=== PATIENT | male | born 1975 | race Caucasian/White ===

== ENCOUNTER → 2021-09-01 | Outpatient (CLI) | payer BC, SELFPAY ==
--- NOTE | 2021-09-01 08:10 | RAD_ITS ---
STUDY: X-RAY - ESOPHAGUS (BARIUM SWALLOW) WITH FLUOROSCOPY REASON FOR EXAM: Male, 45 years old. GERD TECHNIQUE: 13 view(s) of the esophagus were obtained following swallowing of barium. FLUOROSCOPY TIME (if supplied): (38 seconds) minutes/seconds COMPARISON: None. FINDINGS: There is no demonstrated esophageal foreign body. There is no demonstrated stricture or mucosal abnormality. Normal gastroesophageal junction, without a demonstrated hiatal hernia. The patient ingested a 12 mm tablet of barium without any difficulty. Normal visualized aortic arch and descending thoracic aorta. Normal visualized pulmonary parenchyma. Normal visualized osseous structures of the thorax. RAD/Esophagus Single Contrast IMPRESSION: Normal plain film x-ray examination (barium swallow) of the esophagus. Electronically Signed: Brian Garcia MD at 9:22 EDT ,
== END | disposition home or self-care (01) ==
LOC: RAD 08:08
PROVIDERS: PCP Family Medicine; Referring Provider Otolaryngology; Visit Provider Otolaryngology
DX: K21.9 Gastro-esophageal reflux disease without esophagitis (principal)
CPT/HCPCS: 74220

== ENCOUNTER 2022-05-29 07:02 | Day surgery (SDC) | payer BC, SELFPAY ==
[2022-05-29] VITALS (7 sets, daily range): BP systolic 101–130; BP diastolic 66–82; PULSE 56–81; RESP 18; TEMP 36.2–36.4; O2SAT 92–97; BMI 27.3
--- NOTE | 2022-05-29 | GASB_PTH ---
PATIENT: CHAR HATCH LOC: EN U#:[id number] AGE/SX: 46/M ROOM: RE05/29/[address]: Dr. Bridger Elliott MD : 1975 BED: DIS: 05/29/2022 SPEC #: [id number] RECD: 05/29/22 11:18 STATUS: CLIVE BARNETT #: [id number] CRISTIN: 05/29/22 00:[address]: Bridger Elliott DEPT: SURGICAL PATHOLOGY RECD BY: Marvin Bruner ENTERED: 05/29/22 11:18 SP TYPE: Gastric Bx OTHR DR: Dr. Bernardo Johns MD Tissues: A - Gastric mucous membrane B - Esophageal mucous membrane Procedures: Special Stain Group II Surgery Specimen Level IV Alcian Blue/PAS (control) HEADER OPERATION: Colonoscopy, EGD ([facility] [place]) with biopsy PRE-OP DIAGNOSIS: GERD, screening TISSUE SUBMITTED: A ? Antrum biopsy for H. pylori and path, B ? Distal esophagus biopsy MICROSCOPIC DIAGNOSIS A. Antrum, biopsy: Mild gastritis. See microscopic description and comment. B. Distal esophagus, biopsy: Fragments of gastroesophageal mucosa with chronic inflammation. Intestinal metaplasia (goblet cell metaplasia) not identified. See comment. SJ:rg 05/30/2022 COMMENT A. The results of immunohistochemistry for Helicobacter pylori will be reported separately ([id number]). B. Alcian blue/PAS stain with matched control is used in the evaluation of the specimen. MICROSCOPIC DESCRIPTION Slides are reviewed. A. The specimen shows fragments of gastric mucosa with chronic inflammatory cell infiltrates in the lamina propria consisting of lymphocytes and plasma cells, consistent with mild chronic gastritis. GROSS DESCRIPTION A - Received in fixative is one container labeled with the patient's name and designated antrum biopsy. The specimen consists of one irregular fragment of light guillen soft tissue that measures 0.3 x 0.3 x 0.1 cm. The specimen is totally submitted in one cassette. B - Received in fixative is one container labeled with the patient's name and designated distal esophagus. The specimen consists of multiple irregular fragments of light guillen soft tissue that in aggregate measure 1.5 x 0.4 x 0.1 cm. The specimen is totally submitted in one cassette. / TREMAYNE:annie 05/29/2022 TC:3 CPT: 23033 x2, 79680
--- NOTE | 2022-05-29 07:26 | PCM.HP.BLA ---
History and Physical Date of Admission: 05/29/22 Visit Reasons:?Gastroesophageal reflux disease (GERD) Chief Complaint: GERD [employer] Required: No Is patient in pain?: No Allergies No Known Allergies Allergy (Unverified 05/09/22 12:51) Medications fluticasone propionate 50 mcg/actuation nasal spray,suspension 1 spray intranasal 05/09/22 [History Confirmed 05/09/22] omeprazole 40 mg capsule,delayed release 40 mg PO .qod 05/09/22 [History Confirmed 05/09/22] sertraline 50 mg tablet 50 mg PO 05/09/22 [History Confirmed 05/09/22] PFSH Medical History?(Updated 05/09/22 @ 13:[address] Bridger Elliott MD) Anxiety Gastroesophageal reflux disease Snoring Surgical History?(Updated 05/09/22 @ 12:50 by Mariana Wilhelm) S/P rhinoplasty S/P wisdom tooth extraction Family History?(Updated 05/09/22 @ 12:50 by Mariana Wilhelm) Father CVA (cerebral vascular accident) CAD (coronary artery disease) Heart disease Hypertension Social History?(Updated 05/09/22 @ 12:50 by Mariana Wilhelm) Smoking Status:? Never smoker alcohol intake:? current alcohol intake frequency: a few times a week HPI HPI HPI: 46-year-old gentleman who is referred for surgical consultation regarding gastroesophageal reflux disease.? He is referred by Dr Bernardo Johns and a written copy of my surgical consult recommendations will return to him.? By report he has laryngeal regurgitation and currently is on Nexium every other day to help control his symptoms.? Otherwise he has epigastric and retrosternal burning.? He has some dysphagia to solids with food getting stuck in the epigastric area.? That is been going on for several years. He has never had an upper endoscopy or lower endoscopy.? There is no family history of colon cancer. 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 ROS General General: No weight change, appetite, fatigue, colon cancer, breast cancer or weakness HEENT HEENT: Yes difficulty swallowing; No eye injury, eye surgery, swollen glands or hoarseness Endo Endocrine: No thyroid disease, diabetes mellitus, thyroid cancer, Hair loss, heat intolerance or cold intolerance Skin Skin: No rash or changing moles Breast Breast: No left breast lump, right breast lump, nipple discharge, breast pain, abnormal mammogram, abnormal US or breast enlargement Musc Musculoskeletal: No back problems, arthritis, rheumatoid arthritis, gout or joint pain Cardio Cardiovascular: No murmur, pacemaker, heart disease, atrial fibrillation, high blood pressure, heart attack, heart stent, palpitations, shortness of breat with exertion or chest pain Psych Psychiatric: Yes anxiety; No depression or hearing voices Resp Respiratory: No shortness of breath, No sleep apnea, No cough, No COPD, No asthma, No emphysema and No wheezing Gastro Gastrointestinal: No abdominal pain, No nausea or vomiting, No diarrhea, No constipation, No blood in stool, Yes acid reflux, No hemorrhoids, No ulcers, No gallbladder problem and No black,tarry stools Richard Hematologic: No blood thinners, No blood disorders, No bleeding, No anemia and No blood clots Neuro Neurologic: No system reviewed and no additional complaints, except as documented, No as per HPI, No abnormal gait, No abnormal hearing, No abnormal movements, No abnormal speech, No behavioral changes, No burning sensations, No confusion, No convulsions, No disequilibrium, No dizziness, No localized weakness, No frequent falls, No headache(s), No lack of coordination, No loss of vision, No memory loss, No numbness, No other visual disturbances, No radicular pain, No restless legs, No sensory deficit, No syncope, No tingling, No tremor(s), No weakness and No other Exam Const General: cooperative, healthy appearing, comfortable and no acute distress [facility] Head: normal to inspection Eyes General: appearance normal, both eyes and all related structures Neck Neck: normal visual inspection Chest Chest palpation & inspection: normal inspection of the chest Resp Effort & Inspection: normal respiratory effort Auscultation: clear to auscultation bilaterally Cardio Rate: regular rate Rhythm: regular rhythm GI Palpation: soft and no hepatosplenomegaly Auscultation: normal bowel sounds Musc Cervical Spine: normal cervical lordosis Skin General: no rashes or lesions noted Neuro General: patient alert, patient awake and patient oriented x3 Extrem General: no calf tenderness Psych Appearance: grossly normal Assessment and Plan Assessment and Plan (1) Gastroesophageal reflux disease: ?Plan: 46-year-old gentleman with ongoing symptoms consistent with gastroesophageal reflux disease.? He is also had some esophageal dysphagia to foods.? He has not had an upper endoscopy.? I recommend to him a esophagogastroduodenoscopy with possible biopsy and potential dilatation if indicated.? I have described the technique, benefit, risk, alternatives.? He has had an opportunity to ask and have questions answered we will proceed as noted. Copy: Dr Bernardo Elliott M.D., F.A.C.S. (2) Screening for intestinal cancer: ?Status:?Acute ?Plan: It became apparent that the patient is age 46.? He denies any lower GI symptoms but he has not had a screening colonoscopy.? There is no family history of colon cancer.? I have offered to normal colonoscopy for screening purposes with possible biopsy or polypectomy as indicated.? He is aware of technique, benefit, risk, alternatives.? He will CONSIDER his options as to whether he would like to get that achieved at the same setting. Bridger Elliott M.D., F.A.C.S I have examined the patient and the H&P has been reviewed. There are no clinical changes since date of exam. Bridger Elliott M.D., F.A.C.S.
[2022-05-29] MEDS: Lactated Ringers 1,000 ML 15 ML IV (07:29)
--- NOTE | 2022-05-29 08:00 | IMM_PTH ---
PATIENT: CHAR HATCH LOC: EN U#:[id number] AGE/SX: 46/M ROOM: RE05/29/[address]: Dr. Bridger Elliott MD : 1975 BED: DIS: 05/29/2022 SPEC #: [id number] RECD: 05/29/22 14:40 STATUS: CLIVE RELyndsay #: [id number] CRISTIN: 05/29/22 08:[address]: Bridger Elliott DEPT: IMMUNOHISTOCHEMISTRY RECD BY: Tania Arreguin ENTERED: 05/29/22 14:40 SP TYPE: IMMUNO OTHR DR: Dr. Bernardo Johns MD Tissues: A - Stomach, NOS Procedures: H Pylori (initial) PHYSICIAN & INSTITUTION [place] [address] SPECIMEN INFORMATION: Tissue Source: A ? Antrum biopsy Clinical Info: GERD, screening Specimen Number: [id number] CPT code: 09545 METHODOLOGY: Deparaffinized sections of prefer/formalin-fixed tissue or PAP/DQ stained slides are incubated with monoclonal/polyclonal antibodies/oligonucleotide probes. Localization is made via biotin free immunoperoxidase method. Appropriate controls are performed and reacted as expected. Results on target cell population are indicated in the following table: RESULTS: ANTIBODY / CLONE RESULT Block A H Pylori (polyclonal) negative These tests were developed and their performance characteristics determined by [facility]. They may not have been cleared or approved by the U.S. Food and Drug Administration. The FDA has determined that such clearance or approval is not necessary. The above immunohistochemical/dualISH markers are ordered and reviewed by the Pathologist. INTERPRETATION: A. Antrum, biopsy: Negative for Helicobacter pylori organisms. SJ:annie 05/30/2022
--- NOTE | 2022-05-29 08:28 | OP.EGD_ITS ---
Patient Name: Lucas Schaeffer Procedure Date: 05/29/2022 7:58 AM Date of : 1975 Age: 46 Procedure: Upper GI endoscopy Indications: Suspected esophageal reflux Providers: Bridger Elliott MD Medicines: See the Anesthesia note for documentation of the administered medications Complications: No immediate complications. Procedure: Pre-Anesthesia Assessment: - Prior to the procedure, a History and Physical was performed, and patient medications and allergies were reviewed. The patient's tolerance of previous anesthesia was also reviewed. The risks and benefits of the procedure and the sedation options and risks were discussed with the patient. All questions were answered, and informed consent was obtained. Prior Anticoagulants: The patient has taken no previous anticoagulant or antiplatelet agents. ASA Grade Assessment: II - A patient with mild systemic disease. After reviewing the risks and benefits, the patient was deemed in satisfactory condition to undergo the procedure. After obtaining informed consent, the endoscope was passed under direct vision. Throughout the procedure, the patient's blood pressure, pulse, and oxygen saturations were monitored continuously. The Colonoscope was introduced through the mouth, and advanced to the second part of duodenum. The upper GI endoscopy was accomplished without difficulty. The patient tolerated the procedure well. Scope In: 8:03:09 AM Scope Out: 8:10:18 AM Total Procedure Duration Time 0 hours 7 minutes 9 seconds Findings: LA Grade A (one or more mucosal breaks less than 5 mm, not extending between tops of 2 mucosal folds) esophagitis with no bleeding was found 45 cm from the incisors. Biopsies were taken with a cold forceps for histology. A 1 cm hiatal hernia was present. The entire examined stomach was normal. Biopsies were taken with a cold forceps for histology. The examined duodenum was normal. Impression: - LA Grade A reflux esophagitis. Biopsied. - 1 cm hiatal hernia. - Normal stomach. Biopsied. - Normal examined duodenum. Recommendation: - Discharge patient to home. - Resume previous diet. - Continue present medications. - Telephone my office for pathology results in 1 week. Findings appear actually quite minimal and mild. We will await pathology. Procedure Code(s): --- Professional --- 73691, Esophagogastroduodenoscopy, flexible, transoral; with biopsy, single or multiple Diagnosis Code(s): --- Professional --- K21.0, Gastro-esophageal reflux disease with esophagitis K44.9, Diaphragmatic hernia without obstruction or gangrene CPT copyright 2017 [employer] [place] [employer]. All rights reserved. The codes documented in this report are preliminary and upon multiple spindle router operator review may be revised to meet current compliance requirements. Bridger Elliott MD 05/29/2022 8:28:20 AM This report has been signed electronically. Number of Addenda: 0 Note Initiated On: 05/29/2022 7:58 AM
--- NOTE | 2022-05-29 08:29 | OP.CCLET_ITS ---
05/29/2022 Bernardo Johns [address] [place] [address] Re : Upper GI endoscopy procedure for [facility] Dear Dr. Johns This procedure was performed on Sunday, May 29, 2022. My impressions and recommendations are as follows: Impressions : - LA Grade A reflux esophagitis. Biopsied. - 1 cm hiatal hernia. - Normal stomach. Biopsied. - Normal examined duodenum. Recommendations : - Discharge patient to home. - Resume previous diet. - Continue present medications. - Telephone my office for pathology results in 1 week. Findings appear actually quite minimal and mild. We will await pathology. My findings are described in the full procedure note, which is enclosed. If I can be of further assistance, please feel free to contact me at Doctor phone number(s): Work: . Sincerely, Bridger Elliott MD 05/29/2022 8:28:20 AM This report has been signed electronically.
--- NOTE | 2022-05-29 08:32 | OP.CCLET_ITS ---
05/29/2022 Bernardo Johns [address] [place] [address] Re : Colonoscopy procedure for [facility] Dear Dr. Johns This procedure was performed on Sunday, May 29, 2022. My impressions and recommendations are as follows: Impressions : - Non-thrombosed external hemorrhoids, non-thrombosed internal hemorrhoids and internal hemorrhoids that prolapse with straining, but spontaneously regress to the resting position (Grade II) found on digital rectal exam. - The entire examined colon is normal. - No specimens collected. Recommendations : - Discharge patient to home. - Resume previous diet. - Continue present medications. - Repeat colonoscopy in 10 years for screening purposes. My findings are described in the full procedure note, which is enclosed. If I can be of further assistance, please feel free to contact me at Doctor phone number(s): Work: . Sincerely, Bridger Elliott MD 05/29/2022 8:31:20 AM This report has been signed electronically.
--- NOTE | 2022-05-29 08:32 | OP.COLON_ITS ---
Patient Name: Lucas Schaeffer Procedure Date: 05/29/2022 8:10 AM Date of : 1975 Age: 46 Procedure: Colonoscopy Indications: Screening for colorectal malignant neoplasm Providers: Bridger Elliott MD Medicines: See the Anesthesia note for documentation of the administered medications Patient Profile: Last Colonoscopy: none. The patient's first colonoscopy is today. Complications: No immediate complications. Procedure: Pre-Anesthesia Assessment: - Prior to the procedure, a History and Physical was performed, and patient medications and allergies were reviewed. The patient's tolerance of previous anesthesia was also reviewed. The risks and benefits of the procedure and the sedation options and risks were discussed with the patient. All questions were answered, and informed consent was obtained. Prior Anticoagulants: The patient has taken no previous anticoagulant or antiplatelet agents. ASA Grade Assessment: II - A patient with mild systemic disease. After reviewing the risks and benefits, the patient was deemed in satisfactory condition to undergo the procedure. After I obtained informed consent, the scope was passed under direct vision. Throughout the procedure, the patient's blood pressure, pulse, and oxygen saturations were monitored continuously. The Colonoscope was introduced through the anus and advanced to the cecum, identified by appendiceal orifice and ileocecal valve. The colonoscopy was performed without difficulty. The patient tolerated the procedure well. The quality of the bowel preparation was adequate to identify polyps. The ileocecal valve and the appendiceal orifice were photographed. Scope In: 8:12:06 AM Scope Withdrawal Time 0 hours 7 minutes 35 seconds Scope Out: 8:23:06 AM Total Procedure Duration Time 0 hours 11 minutes 0 seconds Findings: The digital rectal exam findings include non-thrombosed external hemorrhoids, non-thrombosed internal hemorrhoids and internal hemorrhoids that prolapse with straining, but spontaneously regress to the resting position (Grade II). Pertinent negatives include normal prostate (size, shape, and consistency). The colon (entire examined portion) appeared normal. Impression: - Non-thrombosed external hemorrhoids, non-thrombosed internal hemorrhoids and internal hemorrhoids that prolapse with straining, but spontaneously regress to the resting position (Grade II) found on digital rectal exam. - The entire examined colon is normal. - No specimens collected. Recommendation: - Discharge patient to home. - Resume previous diet. - Continue present medications. - Repeat colonoscopy in 10 years for screening purposes. Procedure Code(s): --- Professional --- 01769, Colonoscopy, flexible; diagnostic, including collection of specimen(s) by brushing or washing, when performed (separate procedure) Diagnosis Code(s): --- Professional --- Z12.11, Encounter for screening for malignant neoplasm of colon K64.1, Second degree hemorrhoids K64.4, Residual hemorrhoidal skin tags CPT copyright 2017 [employer]. All rights reserved. The codes documented in this report are preliminary and upon vice president of news review may be revised to meet current compliance requirements. Bridger Elliott MD 05/29/2022 8:31:20 AM This report has been signed electronically. Number of Addenda: 0 Note Initiated On: 05/29/2022 8:10 AM
== END 2022-05-29 09:40 | disposition home or self-care (01) ==
LOC: EN 07:06 → AC 07:08
PROVIDERS: PCP Family Medicine; Referring Provider Family Medicine; Visit Provider Surgery
PROC: 0DJD8ZZ Inspection of Lower Intestinal Tract, Via Natural or Artificial Opening Endoscopic (ICD-10-PCS; CPT 45378; principal; 2022-05-29 07:55)
DX: Z12.11 Encounter for screening for malignant neoplasm of colon (principal); K21.00 Gastro-esophageal reflux disease with esophagitis, without bleeding; K29.70 Gastritis, unspecified, without bleeding; K44.9 Diaphragmatic hernia without obstruction or gangrene; K64.1 Second degree hemorrhoids; K64.4 Residual hemorrhoidal skin tags; R13.10 Dysphagia, unspecified; Z79.899 Other long term (current) drug therapy
CPT/HCPCS: 45378; 43239; 88305; 88313; 88342; J7120; J2405

== ENCOUNTER → 2022-06-15 | Outpatient (CLI) | payer BC, SELFPAY | END | disposition home or self-care (01) | LOC: LABSPEC 15:01 | PROVIDERS: PCP Family Medicine; Visit Provider Otolaryngology | DX: J32.9 Chronic sinusitis, unspecified (principal) | CPT/HCPCS: 87070; 87077; 87186; 87205 ==

== ENCOUNTER → 2023-04-26 | Outpatient (CLI) | payer BC, SELFPAY | END | disposition home or self-care (01) | PROVIDERS: PCP Family Medicine; Referring Provider Internal Medicine Critical Care Medicine; Visit Provider Internal Medicine Critical Care Medicine | DX: G47.10 Hypersomnia, unspecified (principal) | CPT/HCPCS: 95806 ==

== ENCOUNTER → 2023-05-21 | Outpatient (CLI) | payer BC, SELFPAY ==
--- OUTSIDE RECORDS SUMMARY | 2023-05-21 16:00 | XMS RPT_ITS | CCD ---
Author Name Unknown Address [address] [place] [address] Organization [facility] Care Team Providers Care Grinding Operator Name Role Phone Don Lynn MD Primary Care Provider THONG CALLEJAS Attending Unavailable SELF, SELF Referring Unavailable DON LYNN Primary Care Unavailable Medications Current Medications Medication Drug Class(es) Dates Sig (Normalized) Sig (Original) fluticasone propionate 0.05 mg/actuat metered dose nasal spray (3 sources) Corticosteroid fluticasone 50 MCG/ACT Suspension nasal spray 2 sprays by Nasal route daily. 0 Active loratadine 10 mg oral tablet (3 sources) take 1 tablet by mouth once daily Loratadine 10 MG tablet Take 1 tablet by mouth daily. 0 Active omeprazole 20 mg delayed release oral capsule (3 sources) Proton Pump Inhibitor take 1 capsule by mouth once daily omeprazole [address] capsule Take 1 capsule by mouth daily. 0 Active sertraline 50 mg oral tablet (3 sources) Serotonin Reuptake Inhibitor take 1 tablet by mouth once daily Sertraline 50 MG tablet Take 1 tablet by mouth daily. 0 Active Problems Problem Classification Problem Date Documented Da te Episodic/Chronic Residual codes; unclassified (3 sources) Hypersomnia; Translations: [Hypersomnia, unspecified] 04-12-2023 Chronic Residual codes; unclassified (2 sources) Hypersomnia, unspecified; Translations: [Hypersomnia, unspecified] Onset: 04-12-2023 Chronic Results Test Name Value Interpretation Reference Range Facil ity Vital Signs Date Time Vital Sign Value Performing Clinician Faci lity 04-10-2023 15:36-0500 Body height 193 cm Thong Callejas MD Work Phone: [facility] 04-10-2023 15:36-0500 Body mass index (BMI) [Ratio] 28 kg/m2 Thong Callejas MD Work Phone: [facility] 04-10-2023 15:36-0500 Body weight 104.33 kg Thong Callejas MD Work Phone: [facility] Encounters Encounter Date Encounter Type Care Provider Facility Start: 04-12-2023 End: 04-12-2023 Office consultation new/estab patient 60 min Thong Callejas MD Work Phone: Sleep Medicine [facility] Plan of Treatment Date Care Activity Detail Author Start: 08-15-2023 End: 08-15-2023 Telemedicine consultation with patient 08/15/2023 2:30 PM EDT Telemedicine Sleep Medicine [facility] [address] [place] [address] Thong Callejas MD [address] [place] [id number] Sleep Medicine [facility] Start: 01-04-2023 Influenza vaccination INFLUENZA VACCINE (#1) [facility] Start: 2021 Screening for malignant neoplasm of colon COLORECTAL CANCER SCREENING DISCUSSION [facility] Start: 2016 Lipid panel LIPID SCREENING [facility] Start: 10-22-1995 Third diphtheria, tetanus and acellular pertussis (DTaP) vaccination TDAP (ADULT) [facility] Start: 10-22-1991 HIV screening HIV SCREENING DISCUSSION [facility] Start: 04-22-1977 COVID-19 VACCINE (#1) COVID-19 VACCINE (#1) [facility] Start: 1976 Hepatitis B vaccination HEP B VACCINE (1 of 3 - 3-dose series) [facility] Start: 1976 Hepatitis C screening HEPATITIS C VIRUS SCREENING [facility] Start: 1976 Tetanus vaccination TETANUS [facility] Payers Date Payer Category Payer Unknown [employer] PPO POS [id number] 2019-Present [address] [place] [address] [id number] 2019 Unknown [id number] 1975 Unknown [id number] Social History Date Type Detail Facility Start: 04-10-2023 Tobacco smoking status NHIS Never smoked tobacco [facility] Start: 04-10-2023 Tobacco use and exposure Smokeless tobacco non-user [facility] Start: 04-10-2023 Alcohol intake Ex-drinker (finding) [facility] Start: 04-10-2023 History of Social function [facility] Start: 04-10-2023 Tobacco use panel [facility] Start: 04-10-2023 Alcohol Comment occasionally [facility] Start: 1975 Sex Assigned At Not on file O [facility] History of Present illness Narrative 04-12-2023 Lynne Viveros MA - 04/12/2023 4:00 PM Elle Callejas MD - 04/12/2023 4:00 PM EST Note Date & Type Note Facility 04-12-2023 History of Present illness Narrative I contacted patient on 04/10/2023 3:40 PM. Answers were put into visit during pre-charting. Will the patient be in the state [facility] at the time of the telehealth visit? Yes If no, notify your manager report & clinical manager report of potential issue Confirm mode for the visit is [employer] Video visit: [employer] - confirm patients knows to login 15 min in advance. Yes I entered/confirmed pharmacy and updated on chart. Yes I reviewed allergies and marked reviewed on chart: Yes I reviewed tobacco use and updated on chart: Yes I reviewed medications and asked patient to have them available at time of visit. Additional medications not in med list added to list. Medications patient no longer taking removed from list. Yes Any refills needed (if yes, please queue up)? No I asked for any home vitals listed in the visit notes such as weight, blood pressure, etc and entered them into vitals. If patient is on Oxygen I documented their most recent oxygen level in the SpO2 field.Yes Informed patient that if they do not receive link for their video visit within 15 minutes of scheduled appointment time, to contact that office directly to see if clinic is running late? Yes Sleep Patients Only I completed the flowsheets for the [place] Sleepines Scale and FOSQ. Yes I have had the pleasure of seeing Mr. Lucas Schaeffer for evaluation at the [facility] today. Impression: Snoring, Sleepiness, likely due to obstructive sleep apnea. He has several risk factors for sleep disordered breathing. I had a long discussion with the patient about the nature of the condition and treatment options. We will make arrangements for a portable in-home sleep study. Overweight No evidence of parasomnia: the sleep history was thoroughly reviewed. No indication of any unusual behavior during sleep that requires intervention. No evidence of restless legs. Sleep hours: adequate Driving Issues: none Plan: Portable in-home sleep study. If HSAT negative- would need to consider an in-lab PSG since we have a high suspicion for VAN. HSAT will be done at [facility]. We discussed treatment options and he is willing to consider CPAP treatment. If the study is positive for obstructive sleep apnea, we will therefore proceed with CPAP therapy. He should never drive if drowsy and should press puller at a safe place if he becomes drowsy while driving. A handout on drowsy driving tips was given to the patient. Discussed importance of weight loss to sleep apnea treatment. Follow up in clinic after the sleep studies. At that time we will discuss his study results and tolerance of therapy if indicated. HPI: Subjective Chief complaint: snoring and hypersomnia. Previous sleep study: Yes ; report not available.; done about a year ago. Did not sleep well. Positive airway pressure (PAP) device use: No He goes to bed at 2300 on weekdays and 2300 on weekends. He awakens at 0630 on weekdays and 0830 on weekends. He estimates a total sleep time of 7 hours each night. He falls asleep in 5 minutes, and awakens 1 times per night. Naps: Yes ( [0] per week for [15] min). Abnormal work hours (outside 6 am-7 pm): No. Sleep disordered breathing symptoms (last month) Loud Snoring 5-7 times a week Snorting or gasping Don't know Breathing stops, chokes, or struggles Don't know Sleepiness and fatigue frequency (last month) Tired upon awakening 3-4 times a week Very sleepy during the day 1-2 times a week Involuntarialy falling asleep Never Tired or Fatigued 1-2 times a week Fallen asleep driving Never Insomnia severity (last month). Currently having any of the following: No Difficulty falling asleep Difficulty staying asleep Problems waking up too early Abnormal behaviors frequency (last month) Problems disturb bed partner s sleep 5-7 times a week Unusual behaviors during sleep Never Kicking while asleep Never Acting out dreams Never Violent behaviors while asleep Never Hypnagogic hallucinations Never Sleep paralysis Never Cataplexy (ever experienced) No Restless Leg Symptoms (Ever had these symptoms) Unpleasant sensations in legs and urge to move No Feelings in your legs occur mainly or only at rest Feelings in your legs improve with movement Feelings worse in the evening or night than in the morning No past medical history on file. Past Surgical History: Procedure Laterality Date RHINOPLASTY 2020 No Known Allergies Current Outpatient Medications Medication Instructions fluticasone 50 MCG/ACT Suspension nasal spray 2 sprays, Nasal, DAILY Loratadine (CLARITIN) 10 mg, Oral, DAILY omeprazole (PRILOSEC) 20 mg, Oral, DAILY Sertraline (ZOLOFT) 50 mg, Oral, DAILY Social History Tobacco Use Smoking status: Never Smokeless tobacco: Never Substance Use Topics Alcohol use: Not Currently Comment: occasionally Drug use: Not Currently Caffeine intake is [ 2 ] drinks per day, up until [ 7 ] hours before bed. Family History Problem Relation Age of Onset Heart Disease - Other Father Known family history of sleep disorders: None Review of Systems Weight has had [ lbs gained], [ lbs lost] in the last year. Patient reported positive symptoms in the past month include: Nasal congestion, Heartburn, Environmental allergies, Anxiety All other systems are negative. Physical Exam Ht 1.93 m (6' 4 ) Wt 104.3 kg (230 lb) BMI 28.00 kg/m Smoking Status Never Body mass index is 28 kg/m . Laboratory and others: Previous medical records from [facility] were reviewed. Serum Chemistry:No results found for: SODIUM , POTASSIUM , CHLORIDE , CO2 , BUN , CREATSERUM , GLUCOSE HBA1c: No results found for: HGBA1C Thyroid function tests:No results found for: TSH , IFU88XTW , PDY35PFP , TSHBASELINE , TSHULTRASEN , TSHRFT4 Lipid profile: No results found for: CHOLESTEROL , TRIG , HDL , LDLCALC No results found for: FERRITIN ECHO: No results found for this or any previous visit. Diagnostic Review: ESS 7 FOSQ 19 MARTINEZ IRLS MVAP 0.827 [place] Sleepiness Score (ESS) > 10 indicates daytime sleepiness but should not be the sole criteria for sleepiness. FOSQ-10 < 17.9 indicates decreased of quality of life due to impact sleepiness. IRLS score interpretation: 1-10: mild 11-20: moderate 21-30: severe 31-40: very severe Total MARTINEZ score interpretation: 0-7 = No clinically significant insomnia 8-14 = Subthreshold insomnia 15-21 = Clinical insomnia (moderate severity) 22-28 = Clinical insomnia (severe) This telehealth visit is a real time video visit communication. During the scheduling process, this patient has verbally consented to the submission of Telehealth visits and the patient is aware of the risks, benefits, and possible coinsurance/copay costs. Patient Location: Home documented in this encounter [facility] Instructions 04-12-2023 Patient Instructions Note Date & Type Note Facility 04-12-2023 Instructions Thong Callejas MD - 04/12/2023 4:00 PM EST Images from the original note were not included. Patient information on the evaluation procedure for sleep apnea: You will have 2 appointments scheduled. The first is your diagnostic home sleep study to see if you have obstructive sleep apnea. The second appointment is your follow up visit with the sleep physician IN THE SLEEP CLINIC to discuss the results and treatment options, if appropriate. After your sleep study is done, we will inform you about the results. If you are enrolled in [facility], we may send you a message about the results and the next steps. If the home sleep study shows significant sleep apnea, a CPAP machine will be ordered for you if this was discussed during your initial visit. In some instances, depending on the result of your test, a titration study may have to be done in the sleep laboratory prior to ordering the CPAP machine. If the home sleep study does not show significant sleep apnea, we may consider doing an in-laboratory sleep study since the home test may miss the presence of sleep apnea in some cases. You will be informed if this is the case. 3. Patients who are diagnosed to have obstructive sleep apnea: A home equipment company of your choice will contact you to set you up with a CPAP machine, if this is the therapy agreed upon your initial visit. Please inform the home care company if you want to do the CPAP setup in person instead of the machine being mailed to you. After you receive CPAP, you have 30 days to change masks as many times as needed until you find one you are comfortable with. The home equipment company will be more than happy to assist you with this. If you are unhappy with your mask, contact them to set up an appointment to try a different one. Please bring your CPAP, the mask and all supplies including the electrical cord with you to all your follow up appointments with the sleep physician Please keep trying to use your CPAP until you have seen the sleep physician in follow up as a lot of the problems patients have with CPAP can be addressed and corrected by your sleep physician. Medicare and some private insurance requires that you are compliant with CPAP therapy in order to keep your machine. During the first 3 months, you must use your CPAP for greater than or equal to 4 hours per night on 70% of nights during a consecutive 30 day period. We must also see you back in the office 31-90 days after you receive your CPAP PORTABLE SLEEP STUDY INSTRUCTIONS- These instructions will be discussed with you during your appointment for the Home Sleep Apnea Test Attach both clips on the Nox-T3 portable monitor to your sleep clothing, on your chest at armpit height Snap a belt end onto the back of the device, wrap the belt around your torso and snap the other end in place. Snap the remaining belt onto the part at your abdomen, wrap the belt around your abdomen and snap the other end in place. Hold the cannula with the prongs curved down and toward the back of your throat. Place a prong in each nostril, and wrap the tubing over and behind each ear. Slide the fastener, located at the Y-site of the cannula, underneath your chin for a tight yet comfortable connection. If the nasal cannula was not pre-fitted into the Nox-T3 device, insert the other end of the cannula into the top hole on the side of the Nox-T3 device and push it in firmly. Place the watch-like mechanism (pusle oximeter) on the wrist of your non-dominant hand, secure it in place using the Velcro straps. Place the probe over the tip of your index or middle finger. Make sure your fingertip does not protrude through the end of the probe and one of the squares is on top of your finger. If your device was not configured to start automatically, press the center button to turn on the device, and then press and hold the center button for three (3) seconds to start the recording. In-person demonstration provided. Written and photo directions are provided. For any problems, an on-call page number is provided [employer] instructional video is provided. Contact Information: [facility]: [phone] Obstructive Sleep Apnea This is a link to an educational video about Obstructive Sleep Apnea: https://www.youtube.com/watch?v=6bq TOfwvWhk What are the risk factors for Obstructive Sleep Apnea (VAN)? Obesity Snoring Daytime sleepiness Increasing age Male gender Taking sedating medications Alcohol use Hypertension Stroke Diabetes Smoking What is VAN? People with VAN experience recurrent episodes during sleep when their throat closes or significantly narrows and they cannot inhale air into their lungs. This happens because the muscles that normally hold the throat open during wakefulness relax during sleep and allow it to narrow (Figure 1 ). When the muscles relax too much, trying to inhale can cause the throat to completely close and air cannot pass at all for at least 10 seconds. This is an obstructive apnea (Figure 2). An obstructive hypopnea occurs when the throat is partially closed for at least 10 seconds and airflow is decreased so much that oxygen in the blood starts to be fall (Figure 3). VAN is measured by how many apneas and hypopneas we have per hour. This is called an Apnea Hypopnea Index (AHI). It is considered excessive to have more than 5 apneas or hypopneas per hour as this can be extremely disruptive to sleep and have significant effects on our health and well being. How does VAN affect me? VAN goes beyond affecting just our quality of sleep. It interferes with many other systems of our body. Increase in blood pressure Worsened control of diabetes Daytime sleepiness and fatigue Irritability Difficulty concentrating or remembering facts Difficulty losing weight Swelling in the legs Frequent awakenings to urinate Increased risk of stroke Increased risk of irregular heart rhythm Increased risk for cardiovascular disease Decreased sexual drive Morning headaches Increased risk of motor vehicle accident How is VAN treated? The first line of treatment for VAN is continuous positive airway pressure (CPAP). A CPAP device provides air though a mask that fits over your nose or mouth and nose. The CPAP provides enough airflow to prevent the airway from collapsing when sleeping. This air can be humidified for comfort. Newer masks fit comfortably over the nasal opening rather than over the nose. It is important that CPAP is used regularly each night for optimal results. Patients should notice improvement in sleepiness within the first week or two. Several second line therapies exist for VAN. Behavioral therapy for VAN includes weight loss and positional therapy which is avoidance of sleeping on ones back. Significant improvement in VAN can occur with as little as 10% weight loss. Dental devices that hold the lower jaw or tongue forward during sleep can also relieve VAN. These devices are not always as effective as CPAP but are preferred by some patients. Surgical procedures can reshape structures in the upper airways or surgically reposition the jaw, and may be helpful in some patients. It is often hard to predict how effective a surgical treatment will be in reducing or eliminating sleep apnea. Additional Information [facility] ([email or web address].edu/go/sleep medicine) [place] Academy [employer] Sleep Medicine (www.aasmnet.org) National Sleep Foundation (www.sleepfoundation.org) [place] Sleep Apnea Association (www.sleepapnea.org) National Heart, Lung, and Blood [place] [employer] (www.nhlbi.nih.gov) [employer] (www.uptodate.com/patients) Drowsy Driving Tips These suggestions will help prevent you from the risk of drowsy driving. 1. If you feel tired or drowsy do not drive. Sleepiness is a major cause of motor vehicle accidents and accounts for 40% of all fatal crashes reported on the [facility]. No matter how much you think you can control sleepiness, you can't. 2. Ensure you follow your doctor's advice about the treatment for your sleep disorder. For example, if you have sleep apnea and use CPAP, ensure you use it fully the night before your trip. 3. Get a good night's sleep before driving. Do not reduce your sleep time if you plan a long drive the next day. Get to bed early and do not stay up late packing. 4. Avoid alcohol both the night before your trip and the during your trip. Alcohol will disrupt sleep and make you more tired the next day. Sleepiness and alcohol are additive in increasing impairment of your driving ability. 5. Avoid any sedative medications, including sedative antihistamines that are often contained in cold or allergy medications, the night before you drive as they may have long lasting effects the next day. 6. Travel during non-sleeping hours. Accidents due to sleepiness are more common during the nighttime hours. 7. If sleepy, stop and rest. Drink coffee, walk around or have a brief nap in your car if you are sleepy. Have a 10-15 minute break after every [address] 8[address] with a wharf hand. Share the driving. Relax in the back seat until it is your time to share the driving again. YOU CAN FIND MORE INFORMATION BY VISITING OUR WEBPAGE: [email or web address].edu/go/sleepm edicine documented in this encounter [facility] Evaluation note Note Date & Type Note Facility documented in this encounter [facility] Evaluation note Note Date & Type Note Facility documented in this encounter [facility] Summary Purpose Family History No Family History Records FoundNo Family History Records Found Advance Directives No Advanced Directives Records FoundNo Advanced Directives Records Found Additional Source Comments (unrecognized sect ion and content) No Status Records FoundNo Status Records Found INFORMATION SOURCE (unrecogn ized section and content) DATE CREATED AUTHOR AUTHOR'S ORGANARNALDO ATION 04/14/2023 [facility] Reason for Visit (unrecogniz ed section and content) Specialty Diagnoses / Procedures Referred By Jesus vaca Referred To Contact Sleep Medicine Diagnoses Hypersomnia Don Lynn MD [address] [facility] [address] [place] [address] [facility] [address] [place] [address] Referral ID Status Reason Start Date Expiration Date V isits Requested Visits Authorized [id number] Pending Review 04/01/2023 04/25/2024 1 1 Care Teams (unrecognized sec tion and content) Grinding Operator Relationship Specialty Start Date End Date Don Lynn MD [address] [facility] [address] [place] [address] PCP - General 04/10/23 FOR RECORDS PERTAINING TO PATIENTS WHO ARE OR HAVE BEEN ENROLLED IN A CHEMICAL DEPENDENCY/SUBSTANCEABUSE PROGRAM, SOME INFORMATION MAY BE OMITTED. This clinical summary was aggregated from multiple sources. Caution should be exercised in using it in the provision of clinical care. This summary normalizes information from multiple sources, and as a consequence, information in this document may materially change the coding, format and clinical context of patient data. In addition, data may be omitted in some cases. CLINICAL DECISIONS SHOULD BE BASED ON THE PRIMARY CLINICAL RECORDS. [employer] provides no warranty or guarantee of the accuracy or completeness of information in this document.
== END | disposition home or self-care (01) ==
LOC: SL 14:02
PROVIDERS: PCP Family Medicine; Visit Provider Internal Medicine Critical Care Medicine
DX: Z00.00 Encounter for general adult medical examination without abnormal findings (principal)